=== PATIENT | male | born 1995 | race Caucasian/White ===

== ENCOUNTER 2022-09-27 00:17 | Emergency (ER) | payer OTHER ==
[2022-09-27 00:32] VITALS: BP 142/80; PULSE 80; RESP 18; TEMP 98.1; BMI 30.7
[2022-09-27 01:53] LABS: PH,URINE 5.5 (5.0-8.0); URINE APPEARANCE CLEAR; URINE BILIRUBIN NEGATIVE (NEGATIVE); URINE COLOR YELLOW; URINE GLUCOSE (UA) NEGATIVE (NEGATIVE); URINE KETONE NEGATIVE (NEGATIVE); URINE LEUK ESTERASE NEGATIVE (NEGATIVE); URINE NITRITE NEGATIVE (NEGATIVE); URINE PROTEIN NEGATIVE (NEGATIVE); URINE UROBILINOGEN 0.2 mg/dL (0.2-1.0)
== END 2022-09-27 02:51 | disposition home or self-care (01) ==
LOC: JER 00:17
DX: N48.89 Other specified disorders of penis (principal)
CPT/HCPCS: 36415; 81003; 87086; 87491; 87591; 87661; 99283-25